=== PATIENT | female | born 1980 | race African-American/Black ===

== ENCOUNTER 2017-05-29 21:25 | Inpatient (IN) ==
[2017-05-29] MEDS ORDERED: ENOXAPARIN 100 MG/ML SYRINGE SUBCUT STA (23:28)
[2017-05-29 23:46] LABS: Basophils % 0.6 % (0.0-0.8); Eosinophils # 0.1 10*3/uL (0.0-0.87); Eosinophils % 2.9 % (0.00-10.9); Hematocrit 37.8 VOL% (35.7-47.0); Hemoglobin 13.6 GM/DL (12.0-16.0); Immature Granulocytes % 0.2 %; Immature Granulocytes Absolute 0.01 #; Lymphocytes # 2.5 10*3/uL (1.4-4.0); Lymphocytes % 50.7 % (21.3-54.2); Mean Corpuscular Hemoglobin 33 PG (27-34); Mean Corpuscular Volume 92.2 FL (87-102); Mean Platelet Volume 10.2 FL (9.6-12.0); Monocytes # 0.4 10*3/uL (0.11-0.8); Monocytes % 8.2 % (1.7-12.7); Neutrophils # 1.8 10*3/uL (1.4-7.4); Neutrophils % 37.4 % (38.7-73.9); Platelet Count 232 T/CUMM (130-400); Red Cell Distribution Width 11.4 % (9.3-17.3); White Blood Count 4.9 T/CUMM (4-12)
[2017-05-29 23:57] LABS: PT Patient Result 10.2 SECS
[2017-05-30] MEDS ORDERED: ENOXAPARIN 80 MG/0.8 ML SYRINGE SUBCUT ONE (00:04)
[2017-05-30 00:05] LABS: Alanine Aminotransferase 16 U/L (13-56); Albumin 3.5 G/DL (3.4-5.0); Alkaline Phosphatase 53 U/L (45-117); Aspartate Amino Transferase 13 U/L (0-37); Bilirubin,Total < 0.39 MG/DL (0.2-1.0); Blood Urea Nitrogen 9 MG/DL (7-18); Calcium 8.1 MG/DL (8.5-10.1); Glucose 91 MG/DL (74-106); Magnesium 2.1 MG/DL (1.8-2.4); Osmolality,Calculated 281.1 MOS/KG (273-304); Potassium 3.6 MMOL/L (3.5-5.1); Sodium 142 MMOL/L (136-145); Total Protein 7.1 G/DL (6.4-8.3); Troponin I Only < 0.015 NG/ML (0.00-0.045)
[2017-05-30 02:22] LABS: Apearance,Urine CLEAR (Clear); Bilirubin,Urine Negative (Negative); Blood, Urine Large mg/dL (Negative); Glucose,Urine (UA) Negative (Negative); Ketones,Urine Negative (Negative); Mucus,Urine Occasional /LPF (Occasional); Nitrite,Urine Negative (Negative); Protein,Urine Negative; RBC,Urine 295 /HPF (0-4); Squamous Epithelial Cell,Urine Occasional /HPF (0-10); Urine Color Yellow (Yellow); Urine Specific Gravity 1.034 (1.001-1.035); Urine Urobilinogen < 2.0 EU/DL (0.2-1.0); WBC,Urine 1 /HPF (0-6)
[2017-05-30 02:25] LABS: Barbiturates Screen,Urine Negative (Negative); Benzodiazepines Screen,Urine Negative (Negative); Cannabinoid Screen,Urine Positive (Negative); Opiate Screen,Urine Negative (Negative); Phencyclidine Screen,Urine Negative (Negative)
[2017-05-30 05:24] LABS: Eosinophils 5 % (0-10); Lymphocytes 61 % (20-55); Segmented Neutrophils 31 % (50-85)
[2017-05-30 05:25] LABS: Platelet Estimate Normal; Total Cells Counted 100
[2017-05-30] MEDS: HEPARIN DRIP 25,000 UNITS/500 ML PREMIX IV SCH ×2 (06:44→22:11)
[2017-05-30 07:14] LABS: Basophils % 0.7 % (0.0-0.8); Eosinophils # 0.1 10*3/uL (0.0-0.87); Eosinophils % 2.3 % (0.00-10.9); Hematocrit 37.7 VOL% (35.7-47.0); Hemoglobin 13.5 GM/DL (12.0-16.0); Immature Granulocytes % 0.2 %; Immature Granulocytes Absolute 0.01 #; Lymphocytes # 2.1 10*3/uL (1.4-4.0); Mean Corpuscular HGB Conc 35.8 GM/DL (32-36); Mean Corpuscular Hemoglobin 33 PG (27-34); Mean Corpuscular Volume 91.7 FL (87-102); Mean Platelet Volume 10.5 FL (9.6-12.0); Monocytes # 0.4 10*3/uL (0.11-0.8); Monocytes % 9.7 % (1.7-12.7); Neutrophils # 1.8 10*3/uL (1.4-7.4); Neutrophils % 40.1 % (38.7-73.9); Platelet Count 221 T/CUMM (130-400); Red Blood Count 4.11 MC/CUMM (3.8-5.5); Red Cell Distribution Width 11.3 % (9.3-17.3); White Blood Count 4.4 T/CUMM (4-12)
[2017-05-30 07:26] LABS: PT Patient Result 10.5 SECS; Partial Thromboplastin Time 27.5 SECS (0-40)
[2017-05-30 07:42] LABS: Calcium 8.3 MG/DL (8.5-10.1); Osmolality,Calculated 278.3 MOS/KG (273-304); Potassium 3.8 MMOL/L (3.5-5.1)
[2017-05-30 13:20] LABS: PT Patient Result 10.6 SECS
[2017-05-30 13:21] LABS: Partial Thromboplastin Time 44.3 SECS (0-40)
[2017-05-30] MEDS ORDERED: WARFARIN 5 MG TABLET ONE (17:54)
[2017-05-30] MEDS: WARFARIN 10 MG TABLET PO SCH (17:57)
[2017-05-30 19:16] LABS: PT Patient Result 10.6 SECS
[2017-05-30 19:54] LABS: Partial Thromboplastin Time 61.1 SECS (0-40)
[2017-05-30] MEDS ORDERED: ACETAMINOPHEN 500 MG TABLET PO PRN (20:43)
[2017-05-31] MEDS ORDERED: MORPHINE 2 MG/1 ML SYRINGE IV PRN (00:40)
[2017-05-31 01:29] LABS: Basophils % 0.7 % (0.0-0.8); Eosinophils # 0.1 10*3/uL (0.0-0.87); Eosinophils % 2.3 % (0.00-10.9); Hematocrit 38.7 VOL% (35.7-47.0); Hemoglobin 13.6 GM/DL (12.0-16.0); Immature Granulocytes % 0.5 %; Immature Granulocytes Absolute 0.02 #; Lymphocytes # 2.3 10*3/uL (1.4-4.0); Lymphocytes % 52.6 % (21.3-54.2); Mean Corpuscular HGB Conc 35.1 GM/DL (32-36); Mean Corpuscular Hemoglobin 32 PG (27-34); Mean Corpuscular Volume 91.7 FL (87-102); Mean Platelet Volume 11.4 FL (9.6-12.0); Monocytes # 0.4 10*3/uL (0.11-0.8); Monocytes % 8.7 % (1.7-12.7); Neutrophils # 1.5 10*3/uL (1.4-7.4); Neutrophils % 35.2 % (38.7-73.9); Platelet Count 261 T/CUMM (130-400); Red Blood Count 4.22 MC/CUMM (3.8-5.5); Red Cell Distribution Width 11.3 % (9.3-17.3); White Blood Count 4.4 T/CUMM (4-12)
[2017-05-31 01:32] LABS: PT Patient Result 10.7 SECS
[2017-05-31 01:34] LABS: Partial Thromboplastin Time 58.9 SECS (0-40)
[2017-05-31 01:52] LABS: Blood Urea Nitrogen 7 MG/DL (7-18); Calcium 8.4 MG/DL (8.5-10.1); Glucose 94 MG/DL (74-106); Magnesium 1.9 MG/DL (1.8-2.4); Sodium 140 MMOL/L (136-145)
[2017-05-31 01:53] LABS: Osmolality,Calculated 276.4 MOS/KG (273-304); Potassium 3.6 MMOL/L (3.5-5.1); Troponin I Only < 0.015 NG/ML (0.00-0.045)
[2017-05-31 04:12] LABS: Band Neutrophils 3 % (0-10); Eosinophils 3 % (0-10); Lymphocytes 51 % (20-55); Platelet Estimate Normal; Segmented Neutrophils 35 % (50-85); Total Cells Counted 100
[2017-05-31 05:46] LABS: INR 1.1; PT Patient Result 11.2 SECS
[2017-05-31 07:10] LABS: INR 1.1; PT Patient Result 11.3 SECS
[2017-05-31 07:29] LABS: Partial Thromboplastin Time 71.7 SECS (0-40)
[2017-05-31] MEDS ORDERED: NIFEdipine 10 MG CAPSULE PO PRN (09:37)
[2017-05-31] MEDS: HEPARIN DRIP 25,000 UNITS/500 ML PREMIX IV SCH ×2 (10:01→13:41)
[2017-05-31 13:26] LABS: INR 1.1; PT Patient Result 11.9 SECS
[2017-05-31 13:34] LABS: Partial Thromboplastin Time 59.7 SECS (0-40)
[2017-05-31 19:56] LABS: INR 1.2; PT Patient Result 12.7 SECS
[2017-05-31 19:57] LABS: Partial Thromboplastin Time 59.9 SECS (0-40)
[2017-05-31] MEDS: WARFARIN 10 MG TABLET PO SCH (20:16)
[2017-06-01 01:21] LABS: INR 1.2; PT Patient Result 12.7 SECS
[2017-06-01 01:29] LABS: Partial Thromboplastin Time 91.9 SECS (0-40)
[2017-06-01 01:44] LABS: Magnesium 1.9 MG/DL (1.8-2.4); Potassium 3.3 MMOL/L (3.5-5.1)
[2017-06-01 01:45] LABS: Osmolality,Calculated 275.4 MOS/KG (273-304)
[2017-06-01] MEDS: HEPARIN DRIP 25,000 UNITS/500 ML PREMIX IV SCH ×2 (03:19→06:34)
[2017-06-01 05:37] LABS: INR 1.4; PT Patient Result 14.2 SECS
[2017-06-01 05:47] LABS: Partial Thromboplastin Time 82.1 SECS (0-40)
[2017-06-01] MEDS: ENOXAPARIN 100 MG/ML SYRINGE SUBCUT SCH ×2 (10:58→21:41)
[2017-06-01] MEDS: POTASSIUM CHLORIDE 20 MEQ TABLET PO SCH ×3 (11:00→18:47)
[2017-06-01 12:26] LABS: INR 1.6; PT Patient Result 16.8 SECS
[2017-06-01] MEDS: WARFARIN 10 MG TABLET PO SCH (18:49)
[2017-06-02 04:15] LABS: INR 2.4
[2017-06-02 04:34] LABS: PT Patient Result 24.6 SECS
[2017-06-02 08:51] VITALS: BP 162/70
== END 2017-06-02 11:15 | disposition home or self-care (01) | DRG 176 ==
LOC: N.ED 21:25 → N.EDINP 05-30 01:40 → SUATTDRO 05-30 01:40 → N.CC 05-30 03:23 → N.4E 05-31 18:54
PROVIDERS: ADMIT Internal Medicine; ATTEND Internal Medicine